=== PATIENT | male | born 1985 | race Caucasian/White ===

== ENCOUNTER 2020-12-08 05:21 | Emergency (ER) | payer SELFPAY ==
[~2020-12-08] VITALS: Ht 175.3 cm; Wt 59.0 kg
[2020-12-08] MEDS ORDERED: KETOROLAC 60MG/2ML VIAL IM ONE (06:00)
[2020-12-08 06:39] VITALS: BP 119/72
[2020-12-08] MEDS ORDERED: IBUP-2028 PO (07:09)
== END 2020-12-08 07:22 | disposition home or self-care (01) ==
LOC: ER 05:21
DX: M25.512 Pain in left shoulder (principal); M54.2 Cervicalgia
CPT/HCPCS: 73030; 96372; 99283; J1885